=== PATIENT | male | born 1980 | race African-American/Black ===

== ENCOUNTER 2017-01-31 18:33 | Emergency (ER) | payer SELFPAY ==
[2017-01-31 18:39] VITALS: BP 124/77; PULSE 64; TEMP 98; BMI 30.4
[2017-01-31] MEDS ORDERED: IBUPROFEN 400 MG TABLET (FP) PO ONE ×2 (18:59→19:00)
--- NOTE | 2017-01-31 19:05 | PDOC ---
History of Present Illness - General Chief Complaint: Toothache Stated Complaint: PAIN Time Seen by Provider: 01/31/17 18:49 History Source: Patient - History of Present Illness Associated Symptoms: denies: fever/chills Past History - Past Medical History Allergies/Adverse Reactions: Allergies Allergy/AdvReac Type Severity Reaction Status Date / Time No Known Allergies Allergy Verified 01/31/17 18:39 Home Medications: Ambulatory Orders Clindamycin [Cleocin -] 300 mg PO Q6HPO #28 capsule 01/31/17 Tramadol HCl 50 mg PO Q6H #8 tablet MDD 200mg 01/31/17 Other medical history: NONE - Suicide/Smoking/Psychosocial Hx Smoking History: Never smoked Hx Alcohol Use: Yes (SOCIAL) Drug/Substance Use Hx: No Review of Systems - Review of Systems Constitutional: No: Chills, Fever HEENTM: Yes: Mouth Pain *Physical Exam - Vital Signs Last Vital Signs Temp Pulse Resp BP Pulse Ox 98.0 F 64 20 124/77 98 01/31/17 18:36 01/31/17 18:36 01/31/17 18:36 01/31/17 18:36 01/31/17 18:36 - Physical Exam General Appearance: Yes: Appropriately Dressed, Mild Distress HEENT: positive: Normal Voice, Other (poor dentition w/ large dental dale to R lower wisdom jairo w/ surrounding gum swelling, no fluctucance, no facial swelling) Neck: positive: Supple Respiratory/Chest: negative: Respiratory Distress Integumentary: positive: Dry, Warm Neurologic: positive: Fully Oriented, Alert, Normal Mood/Affect Medical Decision Making - Medical Decision Making 01/31/17 19:02 37-year-old male denies any past medical history here with severe dental pain since yesterday. No facial swelling, f/c. No recent trauma. Has not tried anything for pain. Patient states he has not been to the dentist in many years. Has since made dental appt since pain started Dental pain Has large dental dale to R lower wisdom tooth w/ gum swelling and ttp, no e/o overt abscess at this time -dc w/ pain control and abx -pt has dental appt in 2 days, will f/u 01/31/17 19:05 *DC/Admit/Observation/Transfer Diagnosis at time of Disposition: Toothache - Discharge Dispostion Disposition: HOME Condition at time of disposition: Good - Prescriptions Prescriptions: Clindamycin [Cleocin -] 300 mg PO Q6HPO #28 capsule Tramadol HCl 50 mg PO Q6H #8 tablet MDD 200mg - Patient Instructions Printed Discharge Instructions: DI for Dental Pain, DI for Tooth Decay Additional Instructions: Take medications as prescribed and follow-up with her doctor on Sunday as already scheduled
== END 2017-01-31 19:03 | disposition home or self-care (01) ==
LOC: JERFT 18:33
DX: K08.89 Other specified disorders of teeth and supporting structures (principal)
CPT/HCPCS: 99281-25

== ENCOUNTER 2020-12-06 23:32 | Emergency (ER) | payer OTHER ==
[2020-12-07 00:02] VITALS: BP 127/72; PULSE 75; TEMP 98.1; BMI 32.6
[2020-12-07] MEDS ORDERED: IBUPROFEN 600 MG TABLET (FP) PO ONE ×2 (02:00→02:09)
== END 2020-12-07 02:21 | disposition home or self-care (01) ==
LOC: JER 23:32
DX: M25.561 Pain in right knee (principal)
CPT/HCPCS: 73562-TC-RT-FY; 99283-25

== ENCOUNTER 2022-04-06 22:04 | Emergency (ER) | payer SELFPAY ==
[2022-04-06 22:14] VITALS: BP 133/76; PULSE 80; RESP 18; TEMP 98.5; BMI 31.1
[2022-04-06] MEDS ORDERED: ACETAMINOPHEN 500 MG TABLET (FP) PO ONE (23:19)
[2022-04-06] MEDS ORDERED: DIPHTH,PERTUSS(ACELL),TET 0.5 ML DISP.SYRIN IM ONE ×2 (23:20→23:30)
[2022-04-06] MEDS ORDERED: LIDOCAINE HCL 2% (50ML VIAL) SQ ONE (23:24)
[2022-04-06] MEDS ORDERED: ACETAMINOPHEN 325 MG TABLET (FP) ONE (23:30)
[2022-04-06] MEDS ORDERED: LIDOCAINE HCL 2% (20ML MULTI-DOSE VIAL) ONE (23:37)
== END 2022-04-07 00:12 | disposition home or self-care (01) ==
LOC: JER 22:04
PROC: 0HQFXZZ Repair Right Hand Skin, External Approach (ICD-10-PCS; principal; 2022-04-06)
PROC: 3E0234Z Introduction of Serum, Toxoid and Vaccine into Muscle, Percutaneous Approach (ICD-10-PCS; 2022-04-06)
DX: S61.411A Laceration without foreign body of right hand, initial encounter (principal); W25.XXXA Contact with sharp glass, initial encounter
CPT/HCPCS: 73130-TC-RT-FY; 90715; 99283-25